=== PATIENT | male | born 1980 | race Caucasian/White ===

== ENCOUNTER → 2019-01-01 | Outpatient (REF) | payer OTHER ==
[2019-01-01 11:18] LABS: CHOLESTEROL LEVEL 226 MG/DL (<200); CHOLESTEROL RISK RATIO 3.766 (<5); CPK CREATINE PHOSPHOKINASE 180 U/L (39-308); FREE T4 0.79 NG/DL (0.76-1.46); HDL CHOLESTEROL 60 MG/DL (>40); LDL CHOLESTEROL 144 MG/DL (<100); MB/CK RELATIVE INDEX 1.67 (< OR =4); NON-HDL-C 166 MG/DL; THYROID STIMULATING HORMONE 0.926 uIU/ML (0.358-3.740); TRIGLYCERIDES LEVEL 109 MG/DL (<150); TROPONIN I < 0.02 NG/ML (< 0.10)
[2019-01-01 11:19] LABS: LUTEINIZING HORMONE 2.2 mIU/mL (1.5-9.3); PROLACTIN 5.6 NG/ML (2.1-17.7)
[2019-01-01 11:20] LABS: FOLLICLE STIMULATING HORMONE 3.7 mIU/mL (1.4-18.1)
[2019-01-02 10:12] LABS: TESTOSTERONE FREE (DIRECT) 8.8 pg/mL (8.7-25.1)
== END ==
LOC: M SFHCPLAZ 08:44
PROVIDERS: ATTEND Physician Assistant Medical
DX: N52.9 Male erectile dysfunction, unspecified (principal); Z13.220 Encounter for screening for lipoid disorders

== ENCOUNTER → 2019-03-15 | Outpatient (REF) | payer OTHER | LOC: M LAB REF 10:28 | PROVIDERS: ATTEND Family Medicine | DX: M54.5 Low back pain (principal) ==